=== PATIENT | male | born 1970 | race African-American/Black ===

== ENCOUNTER → 2018-10-05 | Outpatient (CLI) | payer OTHER | LOC: COL.RAD 08:47 | DX: R19.8 Other specified symptoms and signs involving the digestive system and abdomen (principal); R14.2 Eructation; R14.3 Flatulence | CPT/HCPCS: A9541 ==

== ENCOUNTER → 2020-12-30 | Outpatient (CLI) | payer OTHER | LOC: COL.RAD 10:00 | DX: R10.11 Right upper quadrant pain (principal) | CPT/HCPCS: A9537 ==